=== PATIENT | female | born 1995 | race Hispanic/Latino ===

== ENCOUNTER 2019-09-19 12:59 | Day surgery (SDC) | payer OTHER ==
[2019-09-19 13:25] VITALS: BP 102/62; TEMP 98; BMI 25.2
[2019-09-19] MEDS ORDERED: hydrALAZINE 20 MG/ML VIAL SLOW IVP PRN (13:46)
[2019-09-19 14:21] LABS: Bacteria/HPF None Seen HPF (None Seen); Bilirubin Negative (Negative); Blood, Urine Negative (Negative); Clarity Clear (Clear); Glucose, Urine (Dipstick) Normal (Negative); Leukocyte Negative Leu/uL (Negative); Nitrite Negative (Negative); Protein, Urine (Dipstick) Negative (Neg-Trace); RBC/HPF 0-3 HPF (0-3); Squamous Epithelial 0-3 HPF (0-3); Urobilinogen Normal mg/dL (Less than 2); WBC/HPF 0-3 HPF (0-3)
--- NOTE | 2019-09-20 08:11 | PRG ---
DATE OF SERVICE: 09/19/2019 PRIMARY OB: Dr. John Moore. CHIEF COMPLAINT: Fall and syncope. HISTORY OF PRESENT ILLNESS: The patient is a 24-year-old G1, P0 female with an intrauterine at 32 weeks and a day, who at work today had a witnessed syncopal episode. The patient began feeling lightheaded and began seeing things blurry and felt like things kind of closed down around her and next thing she knew she woke up lying down. She reported that a co-worker was with her and was able to catch her and lay her down onto the floor. The patient denies any trauma or pain. She denies any palpitations. She denies any headache. She denies muscular weakness, tingling, or numbness. She denies any previous episodes of syncope, near syncope, or dizziness. The patient reports that she had a bowl of cereal and some cookies this morning and has not eaten lunch. She works standing at a local [employer] and reports that it is warm there. The patient denies any recent fever, headache, cough, chest pain, shortness of breath, nausea, vomiting, diarrhea, constipation, any new rashes, hip problems, knee problems, or muscle weakness. She denies vaginal bleeding, leakage of fluid, urinary urgency or frequency. PAST MEDICAL HISTORY: Negative. PAST SURGICAL HISTORY: Negative. ALLERGIES: NO KNOWN DRUG ALLERGIES. MEDICATIONS: vitamins. SOCIAL HISTORY: Denies drug, alcohol, or tobacco use. OB LABORATORY DATA: Unavailable at the time of dictation. REVIEW OF SYSTEMS: Per HPI. PHYSICAL EXAMINATION: VITAL SIGNS: Blood pressure is 109/72, heart rate of 86, respiratory rate of 16, saturating 98% on room air, temperature 98.0. GENERAL: She appears to be in no acute distress. She is alert, oriented, cooperative, and pleasant to interact with. HEAD: Normocephalic and atraumatic. LUNGS: Clear to auscultation bilaterally. HEART: Regular rate and rhythm. ABDOMEN: Gravid, soft, nontender. EXTREMITIES: Nontender, nonedematous. VITAL SIGNS: Orthostatic pressures were performed: Lying was 109/72, heart rate of 86; sitting was 108/68, heart rate of 86; and standing was 106/65 with a heart rate of 103. DIAGNOSTIC STUDIES: EKG showed normal sinus rhythm. LABORATORY DATA: Urinalysis showed a specific gravity of 1.009, pH of 6.0, ketones of 40, negative leukocyte esterase, negative red blood cells, negative white blood cells, negative squamous cells, no bacteria seen. heart tracing shows the fetus with baseline in the 140s with moderate long-term variability, positive 15 x 15 accelerations, some irritability on the monitor, but not felt by the patient. ASSESSMENT AND PLAN: The patient is a 24-year-old female with an intrauterine at 32 weeks, having a syncopal episode at work. No evidence of a cardiac issue by history or by EKG and physical exam. This is likely secondary to physiologic changes in the second trimester plus perhaps some fluid deficit as the patient had a nearly 20 point rise in her pulse from sitting to standing. The patient has not had much to eat or drink since breakfast. We have given her a liter of pitcher to drink of water, which she was able to consume. The patient has been counseled to go home, continue to rest, get something to eat for lunch. We have reviewed a healthy way of eating with having small frequent meals with protein included, to stay away from concentrated sources of sugar and to stay hydrated. The patient has expressed understanding. Fetus has a category 1 tracing and reactive NST. She has followup on with her primary OB, which we have encouraged that she keep. Job ID: [id number]
== END 2019-09-19 15:28 | disposition home or self-care (01) ==
LOC: L&D/OP 12:59
PROVIDERS: ATTEND Obstetrics & Gynecology
DX: O99.89 Other specified diseases and conditions complicating pregnancy, childbirth and the puerperium (principal); R55 Syncope and collapse; Z3A.32 32 weeks gestation of pregnancy
CPT/HCPCS: 81001; 93005; 93010